=== PATIENT | female | born 1990 | race Two or more races ===

== ENCOUNTER 2018-02-09 09:23 | Emergency (ER) | payer OTHER ==
[~2018-02-09] VITALS: Ht 142.2 cm; Wt 67.6 kg
[~2018-02-09 09:23] MED LIST: KEFLEX250 MG PO; TERCONAZOLE45 GM VG
== END 2018-02-09 15:55 | disposition home or self-care (01) ==
LOC: ER 09:23
DX: N39.0 Urinary tract infection, site not specified (principal); R10.31 Right lower quadrant pain

== ENCOUNTER 2018-07-10 18:40 | Emergency (ER) | payer OTHER ==
[~2018-07-10] VITALS: Ht 149.9 cm; Wt 67.1 kg
== END 2018-07-10 22:12 | disposition home or self-care (01) ==
LOC: ER 18:40
DX: J11.1 Influenza due to unidentified influenza virus with other respiratory manifestations (principal)

== ENCOUNTER 2019-02-07 16:10 | Emergency (ER) | payer OTHER ==
[~2019-02-07] VITALS: Ht 149.9 cm; Wt 71.7 kg
[2019-02-07] MEDS ORDERED: COMPOUND W TOP (18:21)
== END 2019-02-07 18:43 | disposition home or self-care (01) ==
LOC: ER 16:10
DX: B07.0 Plantar wart (principal); M79.672 Pain in left foot

== ENCOUNTER 2019-06-13 12:27 | Emergency (ER) | payer OTHER ==
[~2019-06-13] VITALS: Ht 149.9 cm; Wt 68.0 kg
[~2019-06-13 12:27] MED LIST changes: +COMPOUND W TOP
[2019-06-13] MEDS ORDERED: PEPCID20 MG PO (20:09)
[2019-06-13] MEDS ORDERED: BACTRIM DS TAB1 EACH PO (20:09)
== END 2019-06-13 20:32 | disposition home or self-care (01) ==
LOC: ER 12:27
DX: K27.9 Peptic ulcer, site unspecified, unspecified as acute or chronic, without hemorrhage or perforation (principal)

== ENCOUNTER 2019-08-16 09:00 | Emergency (ER) | payer OTHER ==
[~2019-08-16] VITALS: Ht 149.9 cm; Wt 67.1 kg
[~2019-08-16 09:00] MED LIST changes: +BACTRIM DS TAB1 EACH PO; +PEPCID20 MG PO
[2019-08-16] MEDS ORDERED: NAPROXEN500 MG PO (10:54)
== END 2019-08-16 11:15 | disposition home or self-care (01) ==
LOC: ER 09:00
DX: M79.672 Pain in left foot (principal)

== ENCOUNTER 2020-08-28 12:51 | Emergency (ER) | payer OTHER ==
[~2020-08-28] VITALS: Ht 149.9 cm; Wt 68.5 kg
[~2020-08-28 12:51] MED LIST changes: +NAPROXEN500 MG PO
[2020-08-28] MEDS ORDERED: KETO10TA2 PO (15:40)
== END 2020-08-28 15:54 | disposition home or self-care (01) ==
LOC: ER 12:51
DX: S60.042A Contusion of left ring finger without damage to nail, initial encounter (principal); W22.8XXA Striking against or struck by other objects, initial encounter; Y93.89 Activity, other specified; Y92.89 Other specified places as the place of occurrence of the external cause; Y99.8 Other external cause status

== ENCOUNTER 2021-04-18 10:21 | Emergency (ER) | payer OTHER ==
[~2021-04-18] VITALS: Ht 175.3 cm; Wt 77.1 kg
[~2021-04-18 10:21] MED LIST changes: +KETO10TA2 PO
== END 2021-04-18 15:13 | disposition home or self-care (01) ==
LOC: ER 10:21
DX: B34.9 Viral infection, unspecified (principal); Z03.818 Encounter for observation for suspected exposure to other biological agents ruled out; R53.81 Other malaise; R07.0 Pain in throat; R09.81 Nasal congestion

== ENCOUNTER → 2021-11-18 | Emergency (ER) | payer OTHER ==
[~2021-11-18] VITALS: Ht 149.9 cm; Wt 67.1 kg
== END | disposition left against medical advice (07) ==
LOC: ER 01:44
DX: Z53.21 Procedure and treatment not carried out due to patient leaving prior to being seen by health care provider (principal)

== ENCOUNTER 2022-02-14 17:47 | Emergency (ER) | payer OTHER ==
[~2022-02-14] VITALS: Ht 149.9 cm; Wt 67.1 kg
[2022-02-14] MEDS ORDERED: PANADOL (19:02)
[2022-02-14] MEDS ORDERED: LEVALBUTER0.63 MG/3 IH (20:56)
[2022-02-14] MEDS ORDERED: MUCINEX DM ER1 EACH PO (20:56)
[2022-02-14] MEDS ORDERED: AZITHROMYCIN500 MG PO (20:56)
[2022-02-14] MEDS ORDERED: ACETAMINOPHEN650 M2 PO (20:56)
== END 2022-02-14 21:23 | disposition home or self-care (01) ==
LOC: ER 17:47
DX: J06.9 Acute upper respiratory infection, unspecified (principal); A49.3 Mycoplasma infection, unspecified site; B34.9 Viral infection, unspecified; R06.02 Shortness of breath

== ENCOUNTER 2022-11-25 20:11 | Emergency (ER) | payer OTHER ==
[~2022-11-25] VITALS: Ht 149.9 cm; Wt 74.8 kg
[~2022-11-25 20:11] MED LIST changes: +ACETAMINOPHEN650 M2 PO; +AZITHROMYCIN500 MG PO; +LEVALBUTER0.63 MG/3 IH; +MUCINEX DM ER1 EACH PO; +PANADOL
== END 2022-11-26 01:17 | disposition home or self-care (01) ==
LOC: ER 20:11
DX: J10.1 Influenza due to other identified influenza virus with other respiratory manifestations (principal); Z20.822 Contact with and (suspected) exposure to COVID-19

== ENCOUNTER 2023-02-12 13:14 | Emergency (ER) | payer OTHER ==
[~2023-02-12] VITALS: Ht 149.9 cm; Wt 71.2 kg
== END 2023-02-12 20:10 | disposition home or self-care (01) ==
LOC: ER 13:14
PROVIDERS: General Practice
DX: K52.89 Other specified noninfective gastroenteritis and colitis (principal); Z20.822 Contact with and (suspected) exposure to COVID-19

== ENCOUNTER 2023-11-01 09:52 | Emergency (ER) | payer OTHER ==
[~2023-11-01] VITALS: Ht 149.9 cm; Wt 62.1 kg
[2023-11-01] MEDS ORDERED: KETOROLAC TROMETHAMINE 60 MG VIAL IM STA (11:52)
[2023-11-01 12:15] LABS: HEMATOCRIT 33.2 % (36.0-45.00); HEMOGLOBIN 11.3 g/dL (12.0-15.00); MEAN CELL VOLUME 77.1 fL (80.00-100.00); MEAN CORPUSCULAR HEMOGLOBIN 26.2 pg (27.00-32.0); PLATELET COUNT 334 K/uL (150-450); RED BLOOD COUNT 4.31 M/uL (4.00-6.00)
[2023-11-01 12:42] LABS: CALCIUM 9.1 mg/dL (8.5-10.1); CREATININE SERUM 0.71 mg/dL (0.55-1.02); GFR 94.8; POTASSIUM 3.98 mEq/L (3.5-5.1)
== END 2023-11-01 13:31 | disposition home or self-care (01) ==
LOC: ER 09:53
PROVIDERS: General Practice
DX: R51.9 Headache, unspecified (principal)

== ENCOUNTER 2024-07-10 12:54 | Emergency (ER) | payer OTHER ==
[~2024-07-10] VITALS: Ht 149.9 cm; Wt 64.0 kg
[2024-07-10 13:00] VITALS: BP 134/84; O2SAT 100
[2024-07-10] MEDS ORDERED: KETOROLAC TROMETHAMINE 30 MG VIAL IV ONE (13:30)
[2024-07-10] MEDS ORDERED: ONDANSETRON HCL 2 MG/ML VIAL IV ONE (13:30)
[2024-07-10] MEDS ORDERED: 0.9 % SODIUM CHLORIDE 1,000 ML IV SCH (13:30)
[2024-07-10] MEDS ORDERED: KETOROLAC TROMETHAMINE 30 MG VIAL ONE (14:01)
[2024-07-10] MEDS ORDERED: ONDANSETRON HCL 2 MG/ML VIAL ONE (14:02)
[2024-07-10 14:22] LABS: PH,URINE 6.5 (5.0-8.0); URINE APPEARANCE Turbid; URINE BILIRRUBIN Negative (NEGATIVE); URINE BLOOD Large; URINE COLOR Yellow; URINE GLUCOSE Negative (NEGATIVE); URINE KETONE Negative (NEGATIVE); URINE LEUKOCYTE Large; URINE NITRATE Negative; URINE UROBILINOGEN 0.2 E.U./dl
[2024-07-10 14:24] LABS: URINE CAST 2.04 uL (0.0-1.40); URINE EPITHELIAL CELLS 3.9 uL (0.0-38.8); URINE RBC 2365.6 uL (0.0-20.8)
[2024-07-10 14:30] LABS: HEMATOCRIT 30.5 % (36.0-45.00); MEAN CELL VOLUME 73.2 fL (80.00-100.00); MEAN CORPUSCULAR HEMOGLOBIN 23.7 pg (27.00-32.0); MEAN CORPUSCULAR HGB CONC 32.3 g/dl (32.0-36.0); PLATELET COUNT 381 K/uL (150-450); RED BLOOD COUNT 4.17 M/uL (4.00-6.00); RED CELL DISTRIBUTION WIDTH 17.3 % (11.5-14.5)
[2024-07-10 14:31] LABS: HEMOGLOBIN 9.9 g/dL (12.0-15.00)
[2024-07-10 14:32] LABS: URINE BACTERIA > 9821.5 uL (0.0-1933); URINE PROTEIN 100 (NEGATIVE); URINE WBC > 5548.3 uL (0.0-23.2)
[2024-07-10 15:31] LABS: ALBUMIN 2.8 gm/dL (3.4-5.0); BILIRUBIN TOTAL 0.22 mg/dL (0.3-1.2); CALCIUM 8.2 mg/dL (8.5-10.1); CREATININE SERUM 0.82 mg/dL (0.55-1.02); GFR 79.8; GLOBULINA 4.8 G/DL (2.4-3.5); POTASSIUM 3.84 mEq/L (3.5-5.1); TOTAL PROTEIN 7.6 gm/dL (6.4-8.2)
[2024-07-10] MEDS ORDERED: CEFTRIAXONE SODIUM 1,000 MG VIAL ONE (15:42)
[2024-07-10] MEDS ORDERED: CEFTRIAXONE SODIUM 1,000 MG VIAL IV ONE (15:45)
== END 2024-07-10 18:41 | disposition home or self-care (01) ==
LOC: ER 12:56
PROVIDERS: General Practice
DX: R10.9 Unspecified abdominal pain (principal); N20.0 Calculus of kidney